=== PATIENT | male | born 1995 ===

== ENCOUNTER 2022-01-27 12:38 | Emergency (ER) | payer SELFPAY ==
[2022-01-27 14:29] LABS: Basophils # (Auto) 0.1 K/mm3 (0.0-0.1); Basophils % (Auto) 1.1 % (0.0-1.8); Eosinophils # (Auto) 0.1 K/mm3 (0.0-0.4); Eosinophils % (Auto) 1.4 % (0.0-4.3); Hemoglobin 17.5 gm/dl (11.8-15.2); Lymphocytes # (Auto) 1.8 K/mm3 (1.2-5.4); Lymphocytes % (Auto) 34.9 % (13.4-35.0); Mean Corpuscular HGB Conc 34 % (32-34); Mean Corpuscular Volume 92 fl (84-94); Monocytes # (Auto) 0.5 K/mm3 (0.0-0.8); Monocytes % (Auto) 9.9 % (0.0-7.3); Platelet Count 214 K/mm3 (140-440); Red Blood Count 5.55 M/mm3 (3.65-5.03); Red Cell Distribution Width 12.9 % (13.2-15.2)
[2022-01-27 14:53] LABS: BUN/Creatinine Ratio 17; Blood Urea Nitrogen 10 mg/dL (9-20); Calcium 9.6 mg/dL (8.4-10.2); Hemolysis Index 20
[2022-01-27 17:02] LABS: Alanine Aminotransferase 37 units/L (7-56); Albumin 4.9 g/dL (3.9-5)
[2022-01-27 17:04] LABS: Bilirubin,Direct < 0.2 mg/dL (0-0.2)
--- NOTE | 2022-01-27 18:13 | Event Note ---
ED Screening Note ED Screening Note: Patient presents with complaints of upper abdominal pain ongoing since Monday He states pain worsens with eating He denies alcohol abuse No past medical history per patient He states nausea without vomiting No stool changes This initial assessment/diagnostic orders/clinical plan/treatment(s) is/are subject to change based on patients health status, clinical progression and re- assessment by fellow clinical providers in the ED. Further treatment and workup at subsequent clinical providers discretion. Patient/guardian urged not to elope from the ED as their condition may be serious if not clinically assessed and managed. Initial orders include: Labs are normal Right upper quadrant ultrasound ordered Patient does have tenderness to palpation of the periumbilical, epigastric, and right upper quadrant area on exam Consider CT scan if ultrasound is normal
[2022-01-27] MEDS ORDERED: ONDANSETRON 4 MG/2 ML INJ IV ONE (19:26)
[2022-01-27] MEDS ORDERED: MORPHINE 4 MG/1 ML INJ IV ONE (19:26)
[2022-01-27] MEDS ORDERED: FAMOTIDINE 20 MG/2 ML INJ IV ONE (19:27)
--- NOTE | 2022-01-27 20:16 | Ultrasound Report ---
. LIMITED RUQ ABDOMINAL ULTRASOUND INDICATION: Acute pain, worse after eating. COMPARISON: No relevant prior imaging study available. FINDINGS: Pancreas: Visualized portions show no significant abnormality. Abdominal Aorta: No significant abnormality. IVC: No significant abnormality. Liver: The liver measures 15 cm in length. No significant abnormality. Normal hepatopedal blood flow in the main portal vein. Gallbladder: No significant abnormality. Bile ducts: No significant abnormality. Common bile duct measures 2.4 mm. Right kidney: No significant abnormality visualized.. Free fluid: None. Additional Findings: None. IMPRESSION: 1. Normal exam. Signer Name: Malro Choi MD Signed: 01/27/2022 8:12 PM Workstation Name: [id number]
[2022-01-27] MEDS ORDERED: KETOROLAC 30 MG/1 ML INJ IV ONE (20:32)
[2022-01-27 20:39] LABS: Bilirubin,Urine NEG (Negative); Blood,Urine NEG (Negative); Color,Urine Yellow (Yellow); Mucus,Urine FEW /HPF; Protein,Urine <15 mg/dL mg/dL (Negative); Urobilinogen,Urine < 2.0 mg/dL (<2.0)
--- NOTE | 2022-01-27 21:40 | Cat Scan Report ---
CT abdomen pelvis w con INDICATION / CLINICAL INFORMATION: ABDOMINAL PAIN - RUQ and Epigastric. TECHNIQUE: Axial CT images were obtained through the abdomen and pelvis after 100 cc of Omnipaque [address] scans at this location are performed using CT dose reduction for ALARA by means of automated exposure control. COMPARISON: None available. FINDINGS: LOWER CHEST: No significant abnormality LIVER: No significant abnormality GALLBLADDER/BILIARY TREE: No significant abnormality PANCREAS: No significant abnormality SPLEEN: No significant abnormality ADRENALS: No significant abnormality RIGHT KIDNEY / URETER: No significant abnormality LEFT KIDNEY / URETER: No significant abnormality URINARY BLADDER: No significant abnormality REPRODUCTIVE ORGANS: No significant abnormality STOMACH / BOWEL: Nondilated fluid-filled loops of mid-distal small bowel within the abdomen with mild mucosal thickening, nonspecific. There is no evidence of small bowel obstruction. The colon is unrem arkable. The appendix is normal in caliber. LYMPH NODES: No significant adenopathy. VASCULATURE: No significant abnormality. OTHER: No free air, free fluid, or focal fluid collection is identified. SKELETAL SYSTEM: No acute osseous findings. IMPRESSION: Nondilated fluid-filled loops of mid to distal small bowel with mild mucosal thickening, nonspecific but may reflect mild enteritis. Otherwise, no significant abnormality. Signer Name: Tonio Trevino MD Signed: 01/27/2022 9:36 PM Workstation Name: [id number]
--- NOTE | 2022-01-27 22:02 | Emergency Department Report ---
ED Abdominal Pain HPI - General Chief Complaint: Abdominal Pain Stated Complaint: NERVOUS/NAUSEA Time Seen by Provider: 01/27/22 16:16 Source: patient Mode of arrival: Ambulatory Limitations: No Limitations - History of Present Illness Initial Comments: Patient is a 26-year-old male with no past medical history presents to the ED with complaint of acute onset persistent epigastric pain that radiates to the right upper quadrant area with intractable nausea and vomiting for the last 2 days. Patient states that the symptoms have been persistent and especially worse with any food intake. Patient also describes the pain in the epigastric area as radiating to the substernal area with a burning sensation. Patient admits to drinking alcohol but the last time he drank alcohol was 5 days ago. Patient denies dizziness, syncope, diarrhea, dysuria, urinary frequency and urgency, chest pain or shortness of breath, cough, hematemesis, hematochezia, dizziness or syncope, headache, sore throat or palpitations. MD Complaint: abdominal pain (Epigastric and right upper quadrant pain), other (Nausea and vomiting) -: Sudden, days(s) (2) Location: RUQ, epigastric Radiation: RUQ, epigastric Migration to: no migration Severity scale (0 -10): 8 Quality: cramping, aching, sharp Consistency: constant Worsens With: eating, vomiting Context: possible food poisoning Associated Symptoms: denies other symptoms, nausea, vomiting. denies: diarrhea, chills, dysuria, hematemesis, hematochezia, melena, hematuria, anorexia, syncope - Related Data Previous Rx's Medication Instructions Recorded Last Taken Type Dicyclomine [Bentyl] 20 mg PO Q6H PRN #30 tablet 01/27/22 Unknown Rx Famotidine [Pepcid] 20 mg PO BID #60 tablet 01/27/22 Unknown Rx Omeprazole 40 mg PO DAILY #60 cap 01/27/22 Unknown Rx Ondansetron [Zofran Odt] 4 mg PO Q8HR PRN #20 tab.rapdis 01/27/22 Unknown Rx Allergies Allergy/AdvReac Type Severity Reaction Status Date / Time No Known Allergies Allergy Verified 01/27/22 13:48 ED Review of Systems ROS: Stated complaint: NERVOUS/NAUSEA Other details as noted in HPI Constitutional: denies: chills, fever Eyes: denies: eye pain, eye discharge, vision change ENT: denies: ear pain, throat pain Respiratory: denies: cough, shortness of breath, wheezing Cardiovascular: denies: chest pain, palpitations Endocrine: no symptoms reported Gastrointestinal: abdominal pain, nausea, vomiting. denies: diarrhea Genitourinary: denies: urgency, dysuria Musculoskeletal: denies: back pain, joint swelling, arthralgia Skin: denies: rash, lesions Neurological: denies: headache, weakness, paresthesias Psychiatric: denies: anxiety, depression Hematological/Lymphatic: denies: easy bleeding, easy bruising ED Past Medical Hx - Medications Home Medications: Home Medications Medication Instructions Recorded Confirmed Last Taken Type Dicyclomine [Bentyl] 20 mg PO Q6H PRN #30 tablet 01/27/22 Unknown Rx Famotidine [Pepcid] 20 mg PO BID #60 tablet 01/27/22 Unknown Rx Omeprazole 40 mg PO DAILY #60 cap 01/27/22 Unknown Rx Ondansetron [Zofran Odt] 4 mg PO Q8HR PRN #20 tab.rapdis 01/27/22 Unknown Rx ED Physical Exam - General Limitations: No Limitations General appearance: alert, in no apparent distress - Head Head exam: Present: atraumatic, normocephalic, normal inspection - Eye Eye exam: Present: normal appearance, PERRL, EOMI Pupils: Present: normal accommodation - ENT ENT exam: Present: normal exam, normal orophraynx, mucous membranes moist, TM's normal bilaterally, normal external ear exam - Neck Neck exam: Present: normal inspection, full ROM. Absent: tenderness - Respiratory Respiratory exam: Present: normal lung sounds bilaterally. Absent: respiratory distress, wheezes, rales, rhonchi, chest wall tenderness, accessory muscle use, decreased breath sounds, prolonged expiratory - Cardiovascular Cardiovascular Exam: Present: regular rate, normal rhythm, normal heart sounds. Absent: systolic murmur, diastolic murmur, rubs, gallop - GI/Abdominal GI/Abdominal exam: Present: soft, tenderness (Palpable right upper quadrant and epigastric tenderness), normal bowel sounds. Absent: guarding, rebound, hyperactive bowel sounds, hypoactive bowel sounds, organomegaly - Extremities Exam Extremities exam: Present: normal inspection, full ROM, normal capillary refill. Absent: tenderness - Back Exam Back exam: Present: normal inspection, full ROM. Absent: tenderness, CVA tenderness (R), CVA tenderness (L), muscle spasm, paraspinal tenderness, vertebral tenderness - Neurological Exam Neurological exam: Present: alert, oriented X3, CN II-XII intact, normal gait, reflexes normal - Psychiatric Psychiatric exam: Present: normal affect, normal mood - Skin Skin exam: Present: warm, dry, intact, normal color. Absent: rash ED Course Vital Signs 01/27/22 13:46 Temperature 97.3 F L Pulse Rate 63 Respiratory 16 Rate Blood Pressure 128/89 [Left] O2 Sat by Pulse 98 Oximetry ED Medical Decision Making - Lab Data Result diagrams: 01/27/22 13:56 01/27/22 13:56 - Radiology Data Radiology results: report reviewed, image reviewed [address] [address] Ultrasound Report Signed Patient: EDU HERNANDEZ MR#: [id number] 69 : 1995 Acct:[id number] Age/Sex: 26 / M ADM Date: 01/27/22 Loc: ED Attending Dr: Ordering Physician: HERMILA JEROME Date of Service: 01/27/22 Procedure(s): US abdomen limited Accession Number(s): [id number] cc: HERMILA JEROME . LIMITED RUQ ABDOMINAL ULTRASOUND INDICATION: Acute pain, worse after eating. COMPARISON: No relevant prior imaging study available. FINDINGS: Pancreas: Visualized portions show no significant abnormality. Abdominal Aorta: No significant abnormality. IVC: No significant abnormality. Liver: The liver measures 15 cm in length. No significant abnormality. Normal hepatopedal blood flow in the main portal vein. Gallbladder: No significant abnormality. Bile ducts: No significant abnormality. Common bile duct measures 2.4 mm. Right kidney: No significant abnormality visualized.. Free fluid: None. Additional Findings: None. IMPRESSION: 1. Normal exam. Signer Name: Marlo Choi MD Signed: 01/27/2022 8:12 PM Workstation Name: [id number] Transcribed By: ALEXIS Dictated By: Marlo Choi MD Electronically Authenticated By: Marlo Choi MD Signed Date/Time: 01/27/222011 DD/ 10 TD/TT: [facility] [address] [place] [address] Cat Scan Report Signed Patient: EDU HERNANDEZ MR#: [id number] 69 : 1995 Acct:[id number] Age/Sex: 26 / M ADM Date: 01/27/22 Loc: ED Attending Dr: Ordering Physician: DAYNA GREEN Date of Service: 01/27/22 Procedure(s): CT abdomen pelvis w con Accession Number(s): [id number] cc: DAYNA GREEN CT abdomen pelvis w con INDICATION / CLINICAL INFORMATION: ABDOMINAL PAIN - RUQ and Epigastric. TECHNIQUE: Axial CT images were obtained through the abdomen and pelvis after 100 cc of Omnipaque [address] scans at this location are performed using CT dose reduction for ALARA by means of automated exposure control. COMPARISON: None available. FINDINGS: LOWER CHEST: No significant abnormality LIVER: No significant abnormality GALLBLADDER/BILIARY TREE: No significant abnormality PANCREAS: No significant abnormality SPLEEN: No significant abnormality ADRENALS: No significant abnormality RIGHT KIDNEY / URETER: No significant abnormality LEFT KIDNEY / URETER: No significant abnormality URINARY BLADDER: No significant abnormality REPRODUCTIVE ORGANS: No significant abnormality STOMACH / BOWEL: Nondilated fluid-filled loops of mid-distal small bowel within the abdomen with mild mucosal thickening, nonspecific. There is no evidence of small bowel obstruction. The colon is unremarkable. The appendix is normal in caliber. LYMPH NODES: No significant adenopathy. VASCULATURE: No significant abnormality. OTHER: No free air, free fluid, or focal fluid collection is identified. SKELETAL SYSTEM: No acute osseous findings. IMPRESSION: Nondilated fluid-filled loops of mid to distal small bowel with mild mucosal thickening, nonspecific but may reflect mild enteritis. Otherwise, no significant abnormality. Signer Name: Giana Trevino MD Signed: 01/27/2022 9:36 PM Workstation Name: [id number] Transcribed By: JS Dictated By: GIANA TREVINO MD Electronically Authenticated By: GIANA TREVINO MD Signed Date/Time: 01/27/222135 DD/ 31 TD/TT: - Medical Decision Making This is a 26-year-old male with no past medical history presents to the ED with complaint of acute onset persistent epigastric pain that radiates to the right upper quadrant area with intractable nausea and vomiting for the last 2 days. Patient states that the symptoms have been persistent and especially worse with any food intake. Patient also describes the pain in the epigastric area as radiating to the substernal area with a burning sensation. Patient admits to drinking alcohol but the last time he drank alcohol was 5 days ago. In the ED, patient is alert and oriented x3 and is not in any distress. Patient was treated for pain in the ED, also given antacids and antiemetics. Gallbladder ultrasound showed no acute abnormalities in the gallbladder. Abdomen pelvis CT scan with IV contrast showed no acute abnormalities except for a nondilated fluid-filled loops of mid to distal small bowel with mild mucosal thickening, nonspecific but may reflect mild enteritis which is a viral syndrome or viral gastroenteritis. On reevaluation, patient felt better, nausea and vomiting resolved and pain is well controlled. Patient was discharged home on medications and advised to maintain a clear liquid diet for 12 to 24 hours, and to follow-up with his primary care physician in 5 to 7 days for reevaluation or return to the ED immediately if symptoms get worse. - Differential Diagnosis GERD; Cholelithiasis; Gastroenteritis; dehydration Critical care attestation.: If time is entered above; I have spent that time in minutes in the direct care of this critically ill patient, excluding procedure time. ED Disposition Clinical Impression: Abdominal pain in male, Viral gastroenteritis, Nausea and vomiting in adult patient GERD (gastroesophageal reflux disease) Qualifiers: Esophagitis presence: esophagitis presence not specified Qualified Code(s): K21.9 - Gastro-esophageal reflux disease without esophagitis Disposition: HOME / SELF CARE / HOMELESS Is pt being admited?: No Does the pt Need Aspirin: No Condition: Stable Instructions: Viral Gastroenteritis, Adult, [id number], Heartburn, [id number], Abdominal Pain, Adult, [id number], Nausea and Vomiting, Adult, [id number], Gastroesophageal Reflux Disease, Adult, [id number]-ra-Eftl Additional Instructions: Todos los resultados de las pruebas de laboratorio fueron revisados ??y no son procesables. La ecografa de vescula biliar no mostr anomalas agudas. La tomografa computarizada del abdomen y la pelvis con contraste intravenoso no mostr anomalas agudas, excepto asas llenas de lquido no dilatadas del intestino mcgarry medio a distal con engrosamiento de la mucosa leve, ine specfico, daren que puede reflejar annie enteritis leve, que es un sndrome viral o annie gastroenteritis viral. Por lo tanto, mantenga annie dieta de lquidos yuridia song 12 a 24 horas, maria g muchos lquidos, héctor un seguimiento con house mdico de atencin primaria en 5 a 7 cheng para annie reevaluacin. Regrese al servicio de urgencias inmediatamente si los sntomas empeoran. Prescriptions: Dicyclomine [Bentyl] 20 mg PO Q6H PRN #30 tablet PRN Reason: Abdominal pain Omeprazole 40 mg PO DAILY #60 cap Famotidine [Pepcid] 20 mg PO BID #60 tablet Ondansetron [Zofran Odt] 4 mg PO Q8HR PRN #20 tab.rapdis PRN Reason: Nausea Referrals: SYMONE VENTURA MD [Primary Care Provider] - 7-10 days Forms: Work/School Release Form(ED) Time of Disposition: 22:03 Print Language: SLOVAK
[2022-01-27 22:30] VITALS: BP 134/93
== END 2022-01-27 22:30 | disposition home or self-care (01) ==
LOC: ED 12:38
DX: A08.4 Viral intestinal infection, unspecified (principal); K21.9 Gastro-esophageal reflux disease without esophagitis; R10.13 Epigastric pain
CPT/HCPCS: 36415; 74177; 76705; 80048; 80076; 81001; 82150; 83690; 85025; 96374; 96375; 99284; J1885; J2270; J2405; J3490; Q9967